=== PATIENT | male | born 1975 | race Caucasian/White ===

== ENCOUNTER 2018-08-03 06:24 | Day surgery (SDC) | payer OTHER ==
[~2018-08-03] VITALS: Ht 190.5 cm; Wt 101.3 kg
[~2018-08-03 06:24] MED LIST: HYDACE5 PO
--- NOTE | 2018-08-03 12:32 | NUR ---
08/03/18 1232 Martita Metz 1020 DC INSTRUCTIONS GIVEN AND RX TO FAMILY MEMBER TO TAKE TO PHARMACY. PT STATED PAIN TOLERABLE AND DENIED NAUSEA. TOÑO PO FOOD AND FLUIDS PRIOR TO DCHOME. JASPER PRESENT FOR INSTRUCTIONS AND ALL QUESTIONS ANSWERED. MADE AWARE OF NEXT PAIN MED TIME AND COPIES OF INSTRUCTIONS WERE GIVEN
== END 2018-08-03 10:25 | disposition home or self-care (01) ==
LOC: ORSCSDS 06:24
PROVIDERS: Podiatrist Foot & Ankle Surgery
PROC: 0LQP0ZZ Repair Left Lower Leg Tendon, Open Approach (ICD-10-PCS; principal; 2018-08-03 08:00)
DX: M66.372 Spontaneous rupture of flexor tendons, left ankle and foot (principal); G47.33 Obstructive sleep apnea (adult) (pediatric); Z87.891 Personal history of nicotine dependence
CPT/HCPCS: J0690; J1100; J1885; J2250; J2405; J2710; J3010; J7120

== ENCOUNTER 2023-02-26 08:16 | Emergency (ER) | payer BC ==
[~2023-02-26] VITALS: Ht 190.5 cm; Wt 97.5 kg
[2023-02-26 11:32] LABS: BASOPHILS ABSOLUTE AUTO 0.05 K/mm3 (0.00-0.23); BASOPHILS PERCENT AUTO 1 % (0-2); EOSINOPHILS ABSOLUTE AUTO 0.07 K/mm3 (0.00-0.68); EOSINOPHILS PERCENT AUTO 1 % (0-6); Hematocrit 49.4 % (37.0-53.0); Hemoglobin 17.5 g/dL (13.5-17.5); IMMATURE GRAN ABSOLUTE AUTO 0.02 K/mm3 (0.00-0.10); IMMATURE GRAN PERCENT AUTO 0 % (0-1); LYMPHOCYTES ABSOLUTE AUTO 1.32 K/mm3 (0.84-5.20); LYMPHOCYTES PERCENT AUTO 18 % (21-46); MONOCYTES ABSOLUTE AUTO 0.78 K/mm3 (0.16-1.47); MONOCYTES PERCENT AUTO 11 % (4-13); Mean Corpuscular HGB 32.5 pg (26.0-34.0); Mean Corpuscular HGB Conc 35.4 g/dL (31.5-36.5); Mean Corpuscular Volume 92 fL (80-100); Mean Platelet Volume 9.1 fL (9.1-12.4); NEUTROPHILS ABSOLUTE AUTO 5.19 K/mm3 (1.96-9.15); NEUTROPHILS PERCENT AUTO 70 % (41-73); Platelet Count 292 K/mm3 (150-400); RDW Coefficient Variation 11.9 % (11.7-14.2); RDW Standard Deviation 40.3 fL (35.1-46.3); Red Blood Cell Count 5.38 M/mm3 (4.30-5.90); White Blood Cell Count 7.43 K/mm3 (4.00-11.30)
[2023-02-26 12:01] LABS: Albumin, Blood 4.1 g/dL (3.4-5.0); Albumin/Globulin Ratio 1.1 (0.8-1.8); Bilirubin, Total 1.1 mg/dL (0.1-1.0); Bun/Creatinine Ratio 9.8 (12.0-20.0); Creatinine, Blood 1.23 mg/dL (0.60-1.20); Globulin, Blood 3.7 g/dL (2.2-4.0); Potassium, Blood 3.7 mmol/L (3.5-5.5); Total Protein, Blood 7.8 g/dL (6.4-8.2)
[2023-02-26 14:04] VITALS: BP 110/75
== END 2023-02-26 14:25 | disposition home or self-care (01) ==
LOC: ER 08:16
PROVIDERS: Emergency Medicine
DX: R07.9 Chest pain, unspecified (principal); R00.0 Tachycardia, unspecified; E86.1 Hypovolemia; R00.2 Palpitations; Z87.891 Personal history of nicotine dependence
CPT/HCPCS: 71046; 71260; 80053; 83690; 83880; 84443; 84484; 85025; 85379; 93005; 93010; 96360; 99285-25; J7030; Q9967

== ENCOUNTER → 2024-08-13 | Outpatient (CLI) | payer OTHER ==
[~2024-08-13] MED LIST changes: +BUSP5 PO; +CARV3.125 PO
== END | disposition home or self-care (01) ==
LOC: LAB SHORT 11:02 → LAB 11:02
DX: L82.1 Other seborrheic keratosis (principal); D22.9 Melanocytic nevi, unspecified
CPT/HCPCS: 88305